=== PATIENT | male | born 1985 | race Caucasian/White ===

== ENCOUNTER 2017-10-01 12:15 | Emergency (ER) | payer SELFPAY ==
[2017-10-01 12:16] VITALS: BP 136/73; PULSE 100; RESP 16; TEMP 99; O2SAT 97
[2017-10-01] MEDS ORDERED: MELO15TA20 PO (14:04)
--- NOTE | 2017-10-01 14:05 | PD ---
HPI Chief Complaint: Musculoskeletal Complaint Time Seen by Provider: 12:55 Travel History International Travel<30 days: No Contact w/Intl Traveler<30days: No Traveled to known affect area: No History of Present Illness HPI This is a 31-year-old male with left shoulder and right ankle pain for 3 weeks. He denies injury or trauma. He denies fever or chills. He denies swelling of the joints. He has attempted Tylenol and ibuprofen. His last dose was 4-5 days ago. Symptoms severity mild. Aggravated by movement and relieved with rest. PFSH Past Medical History Medical History: Denies Significant Hx Social History Tobacco Use: No Allergies-Medications (Allergen,Severity, Reaction): Coded Allergies: No Known Allergies (Verified Allergy, Unknown, 10/01/17) Review of Systems Except as stated in HPI: all other systems reviewed are Neg General / Constitutional: No: Fever Eyes: No: Visual changes HENT: No: Headaches Cardiovascular: No: Chest Pain or Discomfort Respiratory: No: Shortness of Breath Gastrointestinal: No: Abdominal Pain Genitourinary: No: Dysuria Musculoskeletal: No: Pain Skin: No Rash Neurologic: No: Weakness Physical Exam Narrative GENERAL: Alert and well-appearing male. No distress. SKIN: Warm and dry. Erythema or warmth. HEAD: Normocephalic. EYES: No injection or drainage. NECK: Supple, trachea midline. No lymphadenopathy. CARDIOVASCULAR: Regular rate and rhythm without murmurs, gallops, or rubs. RESPIRATORY: Breath sounds equal bilaterally. No accessory muscle use. GASTROINTESTINAL: Abdomen soft, non-tender, nondistended. MUSCULOSKELETAL: No cyanosis, or edema. Left upper extremity: Patient points to the left shoulder at the site of pain. No deformity. No swelling or overlying erythema or warmth. He mild pain with range of motion. 2+ distal pulses. Brisk cap refill. Right lower extremity: Patient points to the right ankle at the site of pain. The area is nontender. No deformity. No swelling. No overlying warmth or erythema. Normal sensation. 2+ distal pulses. Brisk cap refill. BACK: Nontender without obvious deformity. No CVA tenderness. Data Data Last Documented VS Vital Signs Date Time Temp Pulse Resp B/P (MAP) Pulse Ox O2 Delivery O2 Flow Rate FiO2 10/01/17 12:16 99.0 100 16 136/73 (94) 97 MDM Medical Decision Making Medical Screen Exam Complete: Yes Emergency Medical Condition: Yes Differential Diagnosis Arthritis, rheumatoid arthritis, tendinitis Narrative Course This is a 31-year-old male with nontraumatic left shoulder and right ankle pain for 3 weeks. Symptoms are mild. The joints are essentially benign. His vital signs are stable. He is well-appearing. Diagnosis Primary Impression: Ankle pain, right Qualified Codes: M25.571 - Pain in right ankle and joints of right foot Additional Impression: Shoulder pain, left Qualified Codes: M25.512 - Pain in left shoulder Referrals: [facility] Primary Care Physician Departure Forms: Tests/Procedures, Work Release Enter return to work date: Oct 02, 2017 Scripts Meloxicam (Meloxicam) 15 Mg Tab 15 MG PO DAILY for Arthritis Pain, #30 TAB 0 Refills Prov: Kathie Lopez 10/01/17 Disposition: 01 DISCHARGE HOME Condition: Stable Kathie Lopze Oct 01, 2017 14:05
== END 2017-10-01 14:10 | disposition home or self-care (01) ==
LOC: NEPK 12:15
DX: M25.571 Pain in right ankle and joints of right foot (principal); M25.512 Pain in left shoulder
CPT/HCPCS: 99283